=== PATIENT | male | born 1995 | race African-American/Black ===

== ENCOUNTER 2019-07-25 00:59 | Emergency (ER) | payer OTHER ==
[~2019-07-25] VITALS: Ht 188 cm; Wt 104.3 kg
== END 2019-07-25 03:05 | disposition home or self-care (01) ==
LOC: ER 00:59
DX: S67.22XA Crushing injury of left hand, initial encounter (principal); F17.220 Nicotine dependence, chewing tobacco, uncomplicated; W31.9XXA Contact with unspecified machinery, initial encounter
CPT/HCPCS: 73130; 99283-25